=== PATIENT | female | born 1950 | race Caucasian/White ===

== ENCOUNTER 2019-07-31 06:40 | Observation (INO) ==
--- NOTE | 2019-07-25 08:19 | EKG Report ---
Test Performed on : 07/25/2019 08:04:56 AM Test Reason : PAT Blood Pressure : / mmHG Vent. Rate : 062 BPM Atrial Rate : 062 BPM P-R Int : 208 ms QRS Dur : 084 ms QT Int : 434 ms P-R-T Axes : 034 -04 052 degrees QTc Int : 440 ms Normal sinus rhythm. Normal ECG When compared with ECG of 28-SEP-2016 15:46, No significant change was found Confirmed by Lincoln CARPENTER, Timbo Milligan ([id number]) on 07/25/2019 10:24:54 PM
[2019-07-25 08:38] LABS: URINE SOURCE CLEAN CATCH
[2019-07-25 09:03] LABS: HEMOGLOBIN 13.5 g/dL (12.0-16.0); RBC 4.52 XMIL (4.2-5.4)
[2019-07-25 09:04] LABS: BASO# 0.04 X1000 (0.0-0.2); BASO% 0.6 % (0.0-0.8); EOS# 0.09 X1000 (0.0-0.7); EOS% 1.3 % (0.0-10.0); HEMATOCRIT 40.9 % (37.0-47.0); LYMPH# 1.56 X1000 (1.2-3.4); LYMPH% 23.3 % (20.5-51.1); MCH 29.9 PG (27-31); MCV 90.5 FL (81-99); MONO# 0.68 X1000 (0.11-0.59); MONO% 10.1 % (1.7-9.3); MPV 10.7 FL (7.4-10.4); NEUT# 4.33 X1000 (1.4-6.5); NEUT% 64.7 % (42.2-75.2); PLT 249 X1000 (130-400); RDW 13.8 % (11.5-14.5)
[2019-07-25 09:07] LABS: INR 2.09
[2019-07-25 09:08] LABS: BILIRUBIN URINE NEGATIVE (NEGATIVE); BLOOD URINE NEGATIVE (NEGATIVE); COLOR YELLOW; GLUCOSE URINE NEGATIVE (NEGATIVE); KETONE URINE NEGATIVE (NEGATIVE); LEUKOCYTES URINE TRACE (NEGATIVE); NITRITE URINE NEGATIVE (NEGATIVE); PH URINE 7.5; PROTEIN URINE NEGATIVE (NEGATIVE); PTT 33.7 Seconds (22.3-41.8); TURBIDITY URINE CLEAR (CLEAR); UR EPITHELIAL CELLS <10 /HPF (<10); URINE BACTERIA 4+ /HPF; URINE RBC <10 /HPF (<10); URINE WBC <10 /HPF (<10); UROBILINOGEN URINE NORMAL (NORMAL)
[2019-07-25 09:59] LABS: AGAP 11; BUN 9 mg/dL (8-22); CALCIUM 8.8 mg/dL (8.8-10.2); CHLORIDE 106 mmol/L (98-107); COSMO 287; CREATININE 0.7 mg/dL (0.5-0.9); ESTIMATED GFR > 60; GLUCOSE 93 mg/dL (70-104); POTASSIUM 3.9 mmol/L (3.5-5.1); SODIUM 145 mmol/L (136-145); TCO2 28 mmol/L (25-35)
[~2019-07-31 06:40] MED LIST: DIPRIVAN 1% 500 MG/50 ML BOTTLE ONE
[2019-07-31] MEDS ORDERED: LR 1,000 ML ONE (06:49)
[2019-07-31] MEDS ORDERED: KEFZOL 1 GM/D5W 1 GM/50 ML IVPB ONE (06:49)
[2019-07-31] MEDS ORDERED: CELEBREX ONE (06:50)
[2019-07-31] MEDS ORDERED: COLACE ONE (06:50)
[2019-07-31] MEDS ORDERED: PEPCID ONE (06:50)
[2019-07-31] MEDS ORDERED: LYRICA ONE (06:50)
[2019-07-31] MEDS ORDERED: REGLAN ONE (06:50)
[2019-07-31] MEDS ORDERED: LOPRESSOR PO ONE (06:54)
[2019-07-31] MEDS ORDERED: LOPRESSOR ONE (07:06)
[2019-07-31 07:21] LABS: INR 1.04; PROTIME 13.8 Seconds (11.0-16.0)
[2019-07-31] MEDS ORDERED: TORADOL ONE (07:39)
[2019-07-31] MEDS ORDERED: VANCOMYCIN ONE (07:39)
[2019-07-31] MEDS ORDERED: DURAMORPH ONE (07:39)
[2019-07-31] MEDS ORDERED: EXPAREL 1.3% ONE (07:40)
[2019-07-31] MEDS ORDERED: SENSORCAINE 0.25%/EPI 1:200,000 ONE (07:40)
[2019-07-31] MEDS ORDERED: SODIUM CHLORIDE 0.9% ONE (07:40)
[2019-07-31] MEDS ORDERED: XYLOCAINE-MPF 2% ONE (07:46)
[2019-07-31] MEDS ORDERED: DECADRON ONE (07:46)
[2019-07-31] MEDS ORDERED: FENTANYL ONE (07:47)
[2019-07-31] MEDS ORDERED: VERSED ONE (07:48)
[2019-07-31] MEDS ORDERED: ROBINUL ONE (08:50)
[2019-07-31] MEDS ORDERED: OFIRMEV 1000 MG/ISOTONIC SOLN 1,000 MG/100 ML BOTTLE ONE (08:50)
[2019-07-31] MEDS: CYKLOKAPRON 1,000 MG/NS 2,000 MG/200 ML IVPB ONE ×2 (08:50→09:55)
[2019-07-31] MEDS ORDERED: ZOFRAN ONE (08:55)
[2019-07-31] MEDS ORDERED: SODIUM CHLORIDE 0.9% 10 ML ONE (09:29)
[2019-07-31] MEDS ORDERED: EPHEDRINE ONE (09:29)
[2019-07-31 09:35] LABS: URINE SOURCE CATH
[2019-07-31 09:37] LABS: BILIRUBIN URINE NEGATIVE (NEGATIVE); BLOOD URINE NEGATIVE (NEGATIVE); COLOR YELLOW; GLUCOSE URINE NEGATIVE (NEGATIVE); KETONE URINE NEGATIVE (NEGATIVE); LEUKOCYTES URINE NEGATIVE (NEGATIVE); NITRITE URINE NEGATIVE (NEGATIVE); PH URINE 5.5; PROTEIN URINE NEGATIVE (NEGATIVE); SP GRAVITY URINE 1.008; TURBIDITY URINE CLEAR (CLEAR); UROBILINOGEN URINE NORMAL (NORMAL)
[2019-07-31 09:38] LABS: UR EPITHELIAL CELLS <10 /HPF (<10); URINE BACTERIA NEGATIVE /HPF; URINE RBC <10 /HPF (<10); URINE WBC <10 /HPF (<10)
[2019-07-31] MEDS ORDERED: NS 1,000 ML ONE (10:48)
[2019-07-31] MEDS ORDERED: ZOFRAN ODT PO PRN (11:00)
[2019-07-31] MEDS ORDERED: ZOFRAN IV PRN (11:00)
[2019-07-31] MEDS ORDERED: MORPHINE IV PRN ×3 (11:00)
[2019-07-31] MEDS ORDERED: OXY IR PO PRN ×2 (11:00)
--- NOTE | 2019-07-31 11:01 | OPERATIVE NOTE ---
PROCEDURE DATE: 07/31/2019 PREOPERATIVE DIAGNOSIS: Degenerative joint disease, right knee. POSTOPERATIVE DIAGNOSIS: Degenerative joint disease, right knee. PROCEDURE: Right total knee replacement. SURGEON: Keo Phillips MD. WASTE SALVAGER: NIKO Perez. Mr. Jackson was necessary for proper retraction and manipulation of the knee during the case. ANESTHESIA: Spinal. COMPLICATION: None. PROCEDURE IN DETAIL: This 69-year-old female presents for right total knee replacement. Risks, benefits, and no guarantees were discussed and she is willing to proceed. She was taken to the operating room and satisfactory anesthesia obtained. The right leg was prepped and draped in usual sterile fashion. A time-out was taken to confirm operative site, procedure, and patient. The leg was wrapped with an Esmarch and tourniquet inflated to 350 mmHg. A midline incision was made over the front of the knee followed by a quad tendon sparing arthrotomy. The patella was everted and resurfaced with freehand technique and subluxed laterally. With the knee flexed an intramedullary hole was made in the distal femur and the distal femoral cutting block secured in 5 degrees of valgus. Distal femoral resection was made with a 10 mm resection. The femur was sized to a size 6 [employer] femoral implant. The 4 in 1 block was secured and the anterior, posterior, and chamfer cuts sequentially made. The PCL guide was used to provide a notch for the posterior substituting design. Any remaining osteophytes were debrided about the femur. The knee was flexed and a PCL retractor placed behind the tibia to protect the neurovascular bundle. The tibial cutting block was secured with extramedullary alignment and the tibial resection made. The tibia was sized to a size 5 tibial tray. A trial reduction was performed with good range of motion and stability with the trial femur and tibial implants with an 8 mm thick polyethylene bearing. The patella was sized to a 35 medialized dome patella. The drill holes were placed for the patella and femoral implants and trial components removed. The bony surfaces were thoroughly irrigated with pulsatile lavage. Cement was mixed with a gram of vancomycin and a size 5 rotating platform tibial tray and a size 6 standard width posterior stabilized right femoral component and a 35 medialized dome patella cemented onto the bony surfaces. While the cement cured, the joint capsule was injected with Exparel for pain management and a Hemovac drain placed. After curing the cement, a size 6, 8 mm thick posterior stabilized polyethylene bearing was inserted into the tibial tray and the knee reduced. Final range of motion was 0 to 120 degrees with midline patellar tracking. The arthrotomy was copiously irrigated with irrigant and closed over the drain with #1 Vicryl in the arthrotomy, 2-0 Vicryl in the subcutaneous and skin yvonne on the skin edges. Sterile dressings completed the closure and the patient was recovered from anesthesia and transferred to recovery room in stable condition. Tourniquet was released with good return of capillary blood flow. No intraoperative complications were noted. Instrument count and sponge count was correct at the time of closure. cc: Bhavesh Phillips MD
[2019-07-31] MEDS ORDERED: OXY IR ONE (11:31)
--- NOTE | 2019-07-31 12:01 | Diag Imaging Result Doc PS360 ---
EXAM: KNEE 1-2 VIEWS-RIGHT 07/31/2019 HISTORY: post op TECHNIQUE: Right knee two views COMMENT: There is a total knee arthroplasty. There is no evidence of acute bony abnormality otherwise. IMPRESSION: Postsurgical changes. Electronically signed by Pablo Benito 07/31/2019 11:59 AM
--- NOTE | 2019-07-31 14:50 | ORTHOPAEDICS PROGRESS NOTE ---
DATE: 07/31/2019 SUBJECTIVE DATA: Ms Lilly is seen postop day 0 for right total knee arthroplasty. She reports she is doing well at this time. She is working with physical therapy in the room at the current time. She states her pain is a 4/10 at this time. OBJECTIVE: The bandages are clean, dry to right lower extremity. There is good pedal pulses. There is good capillary refill toes. There is negative Homans sign. ASSESSMENT: Degenerative joint disease right knee with right total knee arthroplasty. PLAN: Plan on keeping Ms. Lilly overnight and check on her tomorrow. She did have a small episode of nausea just for a minute but it went away quickly. If all is well we may consider discharge tomorrow to home. We will see how she does with therapy and come see her in the morning. Dictated by NIKO Perez for Bhavesh Phillips MD cc: NIKO Perez MD
[2019-07-31] MEDS: NS 1,000 ML IV SCH ×2 (14:51→21:15)
[2019-07-31] MEDS: KEFZOL 2 GM/D5W 2 GM/50 ML IVPB IV SCH (15:56)
[2019-07-31] MEDS: TYLENOL PO SCH ×2 (15:57→21:12)
[2019-07-31] MEDS: ULTRAM PO SCH ×2 (15:57→21:13)
[2019-07-31] MEDS ORDERED: COUMADIN PO SCH (21:00)
[2019-07-31] MEDS ORDERED: CRESTOR PO SCH (21:00)
[2019-07-31] MEDS: PERIDEX MT SCH (21:12)
[2019-07-31] MEDS: LOPRESSOR PO SCH (21:13)
[2019-07-31] MEDS: CELEBREX PO SCH (21:13)
[2019-07-31] MEDS: COLACE PO SCH (21:13)
[2019-08-01] MEDS: KEFZOL 2 GM/D5W 2 GM/50 ML IVPB IV SCH (01:02)
[2019-08-01] MEDS: ULTRAM PO SCH ×2 (03:12→09:41)
[2019-08-01] MEDS: TYLENOL PO SCH ×2 (03:12→09:42)
[2019-08-01 06:45] LABS: HEMOGLOBIN 10.9 g/dL (12.0-16.0)
[2019-08-01 07:39] LABS: AGAP 16; BUN 10 mg/dL (8-22); CALCIUM 7.9 mg/dL (8.8-10.2); CHLORIDE 105 mmol/L (98-107); COSMO 279; CREATININE 0.6 mg/dL (0.5-0.9); ESTIMATED GFR > 60; GLUCOSE 142 mg/dL (70-104); POTASSIUM 4.9 mmol/L (3.5-5.1); SODIUM 139 mmol/L (136-145); TCO2 18 mmol/L (25-35)
[2019-08-01] MEDS: NS 1,000 ML IV SCH (08:04)
[2019-08-01] MEDS ORDERED: PRINIVIL PO SCH (09:00)
[2019-08-01] MEDS ORDERED: PEPCID PO SCH (09:00)
[2019-08-01] MEDS ORDERED: FOLIC ACID PO SCH (09:00)
[2019-08-01] MEDS ORDERED: FERROUS SULFATE PO SCH (09:00)
[2019-08-01] MEDS ORDERED: ASPIRIN PO ONE (09:00)
[2019-08-01] MEDS ORDERED: ARIMIDEX PO SCH (09:00)
[2019-08-01] MEDS: PERIDEX MT SCH (09:40)
[2019-08-01] MEDS: COLACE PO SCH (09:42)
[2019-08-01] MEDS: CELEBREX PO SCH (09:42)
[2019-08-01] MEDS: LOPRESSOR PO SCH (09:43)
[2019-08-01 11:13] VITALS: BP 144/72
[2019-08-03] MEDS ORDERED: COUMADIN PO SCH (21:00)
== END 2019-08-01 15:08 | disposition home or self-care (01) ==
LOC: 4N 06:40 → DIRADM 06:40 → 4N 08:42
PROVIDERS: ADMIT Orthopaedic Surgery Adult Reconstructive Orthopaedic Surgery; ATTEND Orthopaedic Surgery Adult Reconstructive Orthopaedic Surgery